=== PATIENT | male | born 1965 | race American Indian/Alaskan Native ===

== ENCOUNTER 2021-01-18 12:26 | Inpatient (IN) | payer MEDICAID ==
[2021-01-18] MEDS ORDERED: ACETAMINOPHEN 325 MG TAB PO STA (13:45)
--- NOTE | 2021-01-18 13:52 | Emergency Department Report ---
ED General Adult HPI - General Chief complaint: Medical Clearance Stated complaint: I cant breathe and im full of fluid PUI?: Yes Time Seen by Provider: 01/18/21 13:26 Source: patient, EMS ( EMS documentation not available at time of chart dictation ), RN notes reviewed, old records reviewed Mode of arrival: Stretcher Limitations: Physical Limitation - History of Present Illness Initial comments: The patient was evaluated in the emergency department for symptoms described in the history of present illness. He/she was evaluated in the context of the global COVID-19 pandemic, which necessitated consideration that the patient might be at risk for infection with the virus that causes COVID-19. Institutional protocols and algorithms that pertain to the evaluation of patients at risk for COVID-19 are in a state of rapid change based on information released by regulatory bodies including the CDC and federal and state organizations. These policies and algorithms were followed during the patient's care in the emergency department. Please note that these policies, procedures and recommendations changed on a rapid basis. During the entire history and physical examination, I had on complete personal protective equipment. Nephrology: Dr. Lori Lynch Past medical history: Obesity, COVID-19, diabetes, hypertension, obesity hypoventilation syndrome Patient was recently admitted to this hospital for hypoxic respiratory failure secondary to COVID-19, and worsening renal insufficiency. Ultimately, at the time of discharge, it was felt that patient did not require supplemental oxygen. The patient presents to the ER today with a complaint of feeling like he is "full of fluid", abdominal swelling, shortness of breath. He denies headache, neck pain, chest pain. He denies loss of taste and smell. He denies focal extremity weakness/numbness. He reports that after his recent discharge, that he did not "have any dialysis set up as an outpatient." He thus presented to the emergency room. This patient was recently discharged from this hospital, on 15 January. He believes his last hemodialysis session was on the or 16 of the month. Typically his symptoms improve with hemodialysis. He states that from a Covid perspective he does not feel symptomatic, and "I did not even know I had Covid until I told me." He has not had a subsequent negative test since his initial positive test here at this hospital. He started feeling "badly" last night. -: Gradual, days(s) Location: abdomen Radiation: non-radiation Consistency: constant Improves with: other (Hemodialysis) Worsens with: none - Related Data Previous Rx's Medication Instructions Recorded Last Taken Type Docusate Sodium [Colace CAP] 100 mg PO BID PRN #1 capsule 05/11/15 Unknown Rx ALBUTEROL NEB's [Proventil 0.083% 2.5 mg IH Q4HRT PRN #1 nebu 01/15/21 Unknown Rx NEBS] ALPRAZolam [Xanax TAB] 0.25 mg PO Q8H PRN #16 tablet 01/15/21 Unknown Rx Cholecalciferol Vit D3 [Vitamin D3 1,000 unit PO QDAY #30 tablet 01/15/21 Unknown Rx 1,000 UNIT TAB] Epoetin Domenic-Epbx 20,000 [Retacrit] 20,000 unit SUB-Q LUCÍA PRN vial 01/15/21 U nknown Rx Famotidine [Pepcid] 10 mg PO BID #60 tablet 01/15/21 Unknown Rx Furosemide [Lasix TAB] 80 mg PO QDAY@0600 #30 tablet 01/15/21 Unknown Rx HYDROcodone/APAP 5-325 [[place] 1 each PO Q6H PRN #14 tablet 01/15/21 Unknown Rx 5-325 mg TAB] Insulin Aspart Prot/Aspart(Nf) 20 units SUB-Q BIDDIAB 30 Days #2 01/15/21 Unknown Rx [NovoLOG Mix 70/30 VIAL] vial Insulin NPH/Regular [NovoLIN 70/30] 40 unit SUB-Q BIDDIAB #3 vial 01/15/21 Unknown Rx Tamsulosin [Flomax] 0.4 mg PO QDAY #30 capsule 01/15/21 Unknown Rx amLODIPine 10 mg PO QDAY #30 tablet 01/15/21 Unknown Rx hydrALAZINE [Apresoline TAB] 75 mg PO Q8HR #90 tablet 01/15/21 Unknown Rx Allergies Allergy/AdvReac Type Severity Reaction Status Date / Time No Known Allergies Allergy Verified 01/04/21 14:55 ED Review of Systems ROS: Stated complaint: ABD PAIN Other details as noted in HPI Constitutional: denies: fever Eyes: denies: vision change ENT: congestion Respiratory: shortness of breath, SOB with exertion, SOB at rest Cardiovascular: edema Gastrointestinal: abdominal pain. 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 - Social History Smoking Status: Unknown if ever smoked - Medications Home Medications: Home Medications Medication Instructions Recorded Confirmed Last Taken Type Docusate Sodium [Colace CAP] 100 mg PO BID PRN #1 capsule 05/11/15 01/04/21 Unknown Rx ALBUTEROL NEB's [Proventil 0.083% 2.5 mg IH Q4HRT PRN #1 nebu 01/15/21 Unknown Rx NEBS] ALPRAZolam [Xanax TAB] 0.25 mg PO Q8H PRN #16 tablet 01/15/21 Unknown Rx Cholecalciferol Vit D3 [Vitamin D3 1,000 unit PO QDAY #30 tablet 01/15/21 Unknown Rx 1,000 UNIT TAB] Epoetin Domenic-Epbx 20,000 [Retacrit] 20,000 unit SUB-Q LUCÍA PRN vial 01/15/21 Unknown Rx Famotidine [Pepcid] 10 mg PO BID #60 tablet 01/15/21 Unknown Rx Furosemide [Lasix TAB] 80 mg PO QDAY@0600 #30 tablet 01/15/21 Unknown Rx HYDROcodone/APAP 5-325 [[place] 1 each PO Q6H PRN #14 tablet 01/15/21 Unknown Rx 5-325 mg TAB] Insulin Aspart Prot/Aspart(Nf) 20 units SUB-Q BIDDIAB 30 Days #2 01/15/21 Unknown Rx [NovoLOG Mix 70/30 VIAL] vial Insulin NPH/Regular [NovoLIN 70/30] 40 unit SUB-Q BIDDIAB #3 vial 01/15/21 Unknown Rx Tamsulosin [Flomax] 0.4 mg PO QDAY #30 capsule 01/15/21 Unknown Rx amLODIPine 10 mg PO QDAY #30 tablet 01/15/21 Unknown Rx hydrALAZINE [Apresoline TAB] 75 mg PO Q8HR #90 tablet 01/15/21 Unknown Rx ED Physical Exam - General Limitations: Physical Limitation General appearance: alert, anxious, obese - Head Head exam: Present: atraumatic, normocephalic - Eye Eye exam: Present: normal appearance, EOMI. Absent: nystagmus - ENT ENT exam: Present: normal exam, normal orophraynx, mucous membranes moist, normal external ear exam - Neck Neck exam: Present: normal inspection, full ROM. Absent: tenderness, meningismus - Respiratory Respiratory exam: Present: respiratory distress (There is a right-sided hemodialysis access catheter noted, without redness, pus or streaking), accessory muscle use, other (Pulmonary auscultation not performed secondary to lack of disposable stethoscope). Absent: stridor - Cardiovascular Cardiovascular Exam: Present: other (Cardiac auscultation not performed secondary to lack of disposable stethoscope) - GI/Abdominal GI/Abdominal exam: Present: soft, other (Abdominal wall edema appreciated). Absent: tenderness, guarding, rebound, rigid, pulsatile mass - Rectal Rectal exam: Present: deferred - Extremities Exam Extremities exam: Present: normal inspection (Status post left lower extremity above-knee amputation), full ROM, other (2+ pulses noted in the bilateral upper and right lower extremity. 1+ edema noted in the right lower extremity) - Back Exam Back exam: Present: normal inspection. Absent: tenderness, CVA tenderness (R), CVA tenderness (L), paraspinal tenderness, vertebral tenderness - Neurological Exam Neurological exam: Present: alert, other (No facial droop. Tongue midline. Extraocular movements intact bilaterally. Facial sensation intact to light touch in V1, V2, V3 distribution bilaterally. 5 and a 5 strength in 4 extremities. Sensation intact to light touch in 4 extremities.) - Psychiatric Psychiatric exam: Present: anxious - Skin Skin exam: Present: warm, dry, intact, normal color. Absent: rash ED Course Vital Signs 01/18/21 01/18/21 01/18/21 12:48 13:00 13:01 Temperature 98.2 F Pulse Rate 99 H 91 H Respiratory 12 18 Rate Blood Pressure 163/77 O2 Sat by Pulse Oximetry 01/18/21 01/18/21 13:03 13:59 Temperature Pulse Rate Respiratory 18 Rate Blood Pressure O2 Sat by Pulse 100 Oximetry - Reevaluation(s) Reevaluation #1: 01/18/21 13:54 Differential diagnosis, including but not limited to: Fluid overload, volume overload, end-stage renal disease on hemodialysis, hyperkalemia, azotemia, uremia, metabolic acidosis, anemia of chronic disease Assessment and plan: 55-year-old gentleman, recently discharged from this hospital after prolonged hospital stay with multiple issues, now presenting with shortness of breath, subjective abdominal swelling, difficulty breathing, r equesting hemodialysis. Patient has not had a negative Covid test since his initial positive Covid test at this facility. Maintain patient on isolation precautions, obtain EKG, x-ray of the chest, appropriate laboratory studies, and discussed with his jukebox operator. Reassess after initial data points. We anticipate that patient may require admission or hospitalization secondary to needing urgent hemodialysis. Patient has provided consent for his medical care to be discussed with family if ne cessary. 01/18/21 14:41 Laboratory studies demonstrate chronic anemia, leukocytosis, which is likely a stress reaction, azotemia, uremia, metabolic acidosis. Have contacted patient's jukebox operator, Dr. Lori Lynch, And have discussed the patient's history, physical, laboratory studies and imaging findings. He is in agreement with admission for urgent hemodialysis, to correct fluid overload, me tabolic acidosis, azotemia and uremia. Hospital physician is paged to arrange admission Case management documentation from today is reviewed and appreciated, it appears that patient had a dialysis chair time set up for this past Monday, and they have documented that he did not show up. Therefore, noncompliance may be a component in patient's presentation. I will defer to inpatient team to further manage and evaluate this. I will defer to the inpatient team to further manage and evaluate this. 01/18/21 15:25 Hospital physician, Dr. Gibbons, to admit patient to the medical service. Patient's presentation is likely secondary to fluid overload, end-stage renal disease, do not suspect bacterial illness at this time, therefore, will not initiate antibiotic therapy. Patient currently saturating at 97% on room air, do not see indication for steroids. ED Medical Decision Making - Lab Data Result diagrams: 01/18/21 13:50 01/18/21 13:50 Vital Signs 01/18/21 01/18/21 01/18/21 12:48 13:00 13:01 Temperature 98.2 F Pulse Rate 99 H 91 H Respiratory 12 18 Rate Blood Pressure 163/77 01/18/21 13:03 Temperature Pulse Rate Respiratory 18 Rate Blood Pressure Lab Results 01/18/21 01/18/21 01/18/21 Range/Units 13:50 13:50 13:50 WBC 16.0 H (4.5-11.0) K/mm3 RBC 2.47 L (3.65-5.03) M/mm3 Hgb 7.8 L (11.8-15.2) gm/dl Hct 22.7 L (35.5-45.6) % MCV 92 (84-94) fl MCH 32 (28-32) pg MCHC 35 H (32-34) % RDW 13.3 (13.2-15.2) % Plt Count 199 (140-440) K/mm3 Lymph % (Auto) 4.3 L (13.4-35.0) % [place] % (Auto) 10.4 H (0.0-7.3) % Eos % (Auto) 0.2 (0.0-4.3) % Baso % (Auto) 0.4 (0.0-1.8) % Lymph # (Auto) 0.7 L (1.2-5.4) K/mm3 [place] # (Auto) 1.7 H (0.0-0.8) K/mm3 Eos # (Auto) 0.0 (0.0-0.4) K/mm3 Baso # (Auto) 0.1 (0.0-0.1) K/mm3 Seg Neutrophils % 84.7 H (40.0-70.0) % Seg Neutrophils # 13.6 H (1.8-7.7) K/mm3 PT 14.1 (12.2-14.9) Sec. INR 1.10 (0.87-1.13) Sodium 135 L (137-145) mmol/L Potassium 4.8 (3.6-5.0) mmol/L Chloride 92.5 L (98-107) mmol/L Carbon Dioxide 16 L (22-30) mmol/L Anion Gap 31 mmol/L BUN 97 H (9-20) mg/dL Creatinine 12.7 H (0.8-1.3) mg/dL Estimated GFR 5 ml/min BUN/Creatinine Ratio 8 % Glucose 112 H (75-100) mg/dL Calcium 7.2 L (8.4-10.2) mg/dL Magnesium 1.90 (1.7-2.3) mg/dL Total Bilirubin 0.20 (0.1-1.2) mg/dL AST 13 (5-40) units/L ALT 33 (7-56) units/L Alkaline Phosphatase 90 (35-129) units/L Total Creatine Kinase 534 H (55-170) units/L NT-Pro-B Natriuret Pep 4684 H (0-900) pg/mL Total Protein 6.4 (6.3-8.2) g/dL Albumin 2.7 L (3.9-5) g/dL Albumin/Globulin Ratio 0.7 % Vital Signs 01/18/21 01/18/21 01/18/21 12:48 13:00 13:01 Temperature 98.2 F Pulse Rate 99 H 91 H Respiratory 12 18 Rate Blood Pressure 163/77 O2 Sat by Pulse Oximetry 01/18/21 01/18/21 13:03 13:59 Temperature Pulse Rate Respiratory 18 Rate Blood Pressure O2 Sat by Pulse 100 Oximetry - EKG Data -: EKG Interpreted by [place] EKG shows normal: sinus rhythm Rate: normal - EKG Data 01/18/21 13:54 EKG interpreted at 1: 10 PM Sinus rhythm, 93 bpm, left axis deviation, left anterior fascicular block, left ventricular hypertrophy, QTC is prolonged, and motion artifact. This is an abnormal EKG. This is not a STEMI. - Radiology Data Radiology results: pending, report reviewed, image reviewed [facility] [address] [place] [address] XRay Report Signed Patient: MERLY BO MR#: [id number] 61 : 1965 Acct:[id number] Age/Sex: 55 / M ADM Date: 01/18/21 Loc: ED Attending Dr: Ordering Physician: DIPAK HANSEN MD Date of Service: 01/18/21 Procedure(s): XR chest 1V ap Accession Number(s): [id number] cc: DIPAK HANSEN MD Fluoro Time In Minutes: XR chest 1V ap INDICATION / CLINICAL INFORMATION: Dyspnea COMPARISON: 01/03/2021 FINDINGS: SUPPORT DEVICES: Right central venous catheter terminates in the right atrium. HEART / MEDIASTINUM: No significant abnormality. LUNGS / PLEURA: Pulmonary vascular congestion, similar to prior. Costophrenic sulci are sharp. No pneumothorax. ADDITIONAL FINDINGS: No significant additional findings. IMPRESSION: 1. Pulmonary vascular congestion which is similar prior exam. Otherwise, no significant abnormality. Signer Name: Henok Moseley MD Signed: 01/18/2021 2:24 PM Workstation Name: [email or web address] Transcribed By: CS Dictated By: Henok Moseley MD Electronically Authenticated By: Henok Moseley MD Signed Date/Time: 01/18/21 8888 Critical care attestation.: If time is entered above; I have spent that time in minutes in the direct care of this critically ill patient, excluding procedure time. ED Disposition Clinical Impression: ESRD (end stage renal disease) on dialysis, Metabolic acidosis, Volume over load, Azotemia, Anemia, Obesity, COVID-19, Obesity hypoventilation syndrome Disposition: DC-09 OP ADMIT IP TO THIS HOSP Is pt being admited?: Yes Does the pt Need Aspirin: No Condition: Good Referrals: PRIMARY CARE, [Primary Care Provider] - 3-5 Days
[2021-01-18 14:09] LABS: Basophils # (Auto) 0.1 K/mm3 (0.0-0.1); Basophils % (Auto) 0.4 % (0.0-1.8); Eosinophils % (Auto) 0.2 % (0.0-4.3); Hematocrit 22.7 % (35.5-45.6); Hemoglobin 7.8 gm/dl (11.8-15.2); Lymphocytes # (Auto) 0.7 K/mm3 (1.2-5.4); Lymphocytes % (Auto) 4.3 % (13.4-35.0); Mean Corpuscular HGB Conc 35 % (32-34); Mean Corpuscular Volume 92 fl (84-94); Monocytes # (Auto) 1.7 K/mm3 (0.0-0.8); Monocytes % (Auto) 10.4 % (0.0-7.3); Platelet Count 199 K/mm3 (140-440); Red Blood Count 2.47 M/mm3 (3.65-5.03); Red Cell Distribution Width 13.3 % (13.2-15.2)
[2021-01-18 14:23] LABS: INR 1.1 (0.87-1.13)
[2021-01-18 14:27] LABS: Albumin 2.7 g/dL (3.9-5); Calcium 7.2 mg/dL (8.4-10.2)
--- NOTE | 2021-01-18 14:29 | XRay Report ---
XR chest 1V ap INDICATION / CLINICAL INFORMATION: Dyspnea COMPARISON: 01/03/2021 FINDINGS: SUPPORT DEVICES: Right central venous catheter terminates in the right atrium. HEART / MEDIASTINUM: No significant abnormality. LUNGS / PLEURA: Pulmonary vascular congestion, similar to prior. Costophrenic sulci are sharp. No pne umothorax. ADDITIONAL FINDINGS: No significant additional findings. IMPRESSION: 1. Pulmonary vascular congestion which is similar prior exam. Otherwise, no significant abnormality. Signer Name: Henok Moseley MD Signed: 01/18/2021 2:24 PM Workstation Name: [id number]
--- NOTE | 2021-01-18 15:26 | History and Physical Report ---
History of Present Illness Chief complaint: I have fluid on me History of present illness: 55 YO Male with DM, HTN, Obesity Hypoventilation Syndrome, ESRD on HD(M,W,F), Noncompliance with dialysis, Asymptomatic Coronavirus Infection S/P full coarse therapy presents to ED for evaluation. Patient reports " I am full of fluid." Patient states that he has experienced shortness of breath, abdominal distention, decreased exercise tolerance over the past 4 days with worsening symptoms over the same timeframe. Patient knowledges noncompliance with outpatient dialysis. EMS was notified and upon arrival the patient was found to be in distress and subsequently transported to [facility] for further care and evaluation of the aforementioned symptoms. The patient was seen and evaluated in the emergency department. All lab and imaging studies reviewed. The patient was found to have end-stage renal disease, acidosis, sepsis. Patient admitted to medical floor and initiated on sepsis protocol. Patient is status post full course therapy for coronavirus infection with subsequent discharge from [facility] on 01/15/2021. Patient denies fever, chills, chest pain, palpitations, productive cough, skin rash, recent ill contacts. Prior admission on 01/03/2021 reviewed. All medication listed at time of admission has been reconciled. Nephrology team consulted in ED. Patient initiated on sepsis protocol and treated with empiric IV antibiotic therapy. Past History Past Medical History: diabetes, ESRD, hypertension Past Surgical History: No surgical history, Other (Buttock abscess excision) Social history: . denies: smoking, alcohol abuse, prescription drug abuse Family history: diabetes, hypertension Medications and Allergies Allergies Allergy/AdvReac Type Severity Reaction Status Date / Time No Known Allergies Allergy Verified 01/04/21 14:55 Home Medications Medication Instructions Recorded Confirmed Last Taken Type Docusate Sodium [Colace CAP] 100 mg PO BID PRN #1 capsule 05/11/15 01/04/21 Unknown Rx ALBUTEROL NEB's [Proventil 0.083% 2.5 mg IH Q4HRT PRN #1 nebu 01/15/21 Unknown Rx NEBS] ALPRAZolam [Xanax TAB] 0.25 mg PO Q8H PRN #16 tablet 01/15/21 Unknown Rx Cholecalciferol Vit D3 [Vitamin D3 1,000 unit PO QDAY #30 tablet 01/15/21 Unknown Rx 1,000 UNIT TAB] Epoetin Domenic-Epbx 20,000 [Retacrit] 20,000 unit SUB-Q LUCÍA PRN vial 01/15/21 Unknown Rx Famotidine [Pepcid] 10 mg PO BID #60 tablet 01/15/21 Unknown Rx Furosemide [Lasix TAB] 80 mg PO QDAY@0600 #30 tablet 01/15/21 Unknown Rx HYDROcodone/APAP 5-325 [[place] 1 each PO Q6H PRN #14 tablet 01/15/21 Unknown Rx 5-325 mg TAB] Insulin Aspart Prot/Aspart(Nf) 20 units SUB-Q BIDDIAB 30 Days #2 01/15/21 Unknown Rx [NovoLOG Mix 70/30 VIAL] vial Insulin NPH/Regular [NovoLIN 70/30] 40 unit SUB-Q BIDDIAB #3 vial 01/15/21 Unknown Rx Tamsulosin [Flomax] 0.4 mg PO QDAY #30 capsule 01/15/21 Unknown Rx amLODIPine 10 mg PO QDAY #30 tablet 01/15/21 Unknown Rx hydrALAZINE [Apresoline TAB] 75 mg PO Q8HR #90 tablet 01/15/21 Unknown Rx Review of Systems Constitutional: weakness, no weight loss, no weight gain, no fever, no chills Ears, nose, mouth and throat: no ear pain, no ear discharge, no decreased heari ng, no nasal congestion, no nasal discharge Cardiovascular: no chest pain, no orthopnea, no rapid/irregular heart beat, no edema, no syncope, no shortness of breath Respiratory: no cough, no cough with sputum, no hemoptysis, no shortness of breath Gastrointestinal: no abdominal pain, no nausea, no vomiting, no change in bowel habits, no hematemesis Genitourinary Male: no hematuria, no flank pain, no discharge, no urinary frequency, no urinary hesitancy Rectal: no pain, no incontinence, no bleeding Musculoskeletal: no neck stiffness, no neck pain, no shooting arm pain, no low back pain, no leg numbness/tingling Integumentary: no rash, no pruritis, no redness, no sores, no wounds Neurological: no transient paralysis, no paralysis, no weakness, no parathesias, no tingling, no seizures Psychiatric: no anxiety, no change in sleep habits, no sleep disturbances, no insomnia, no change in appetite, no change in libido, no suicidal ideation Endocrine: no cold intolerance, no polyphagia, no excessive thirst, no nocturia, no excessive sweating Hematologic/Lymphatic: no easy bruising, no lymphadenopathy, no lymphedema Allergic/Immunologic: no urticaria, no wheezing, no persistent infections, no anaphylaxis Exam - Constitutional Vitals: Temp Pulse Resp BP Pulse Ox 98.2 F 91 H 18 163/77 100 01/18/21 13:01 01/18/21 13:00 01/18/21 13:03 01/18/21 13:00 01/18/21 13:59 General appearance: Present: mild distress, obese - EENT Eyes: Present: PERRL ENT: hearing intact, clear oral mucosa - Neck Neck: Present: supple, normal ROM - Respiratory Respiratory effort: normal Respiratory: bilateral: CTA - Cardiovascular Heart Sounds: Present: S1 & S2. Absent: rub, click - Extremities Extremities: pulses symmetrical, No edema Peripheral Pulses: within normal limits - Abdominal General gastrointestinal: Present: soft, non-tender, non-distended, normal bowel sounds Male genitourinary: Present: normal - Integumentary Integumentary: Present: clear, warm, dry - Musculoskeletal Musculoskeletal: gait normal, strength equal bilaterally - Psychiatric Psychiatric: appropriate mood/affect, intact judgment & insight - Neurologic Neurologic: CNII-XII intact, moves all extremities Results - Labs CBC & Chem 7: 01/18/21 13:50 01/18/21 13:50 Labs: Abnormal lab results 01/18/21 01/18/21 Range/Units 13:50 13:50 WBC 16.0 H (4.5-11.0) K/mm3 RBC 2.47 L (3.65-5.03) M/mm3 Hgb 7.8 L (11.8-15.2) gm/dl Hct 22.7 L (35.5-45.6) % MCHC 35 H (32-34) % Lymph % (Auto) 4.3 L (13.4-35.0) % [place] % (Auto) 10.4 H (0.0-7.3) % Lymph # (Auto) 0.7 L (1.2-5.4) K/mm3 [place] # (Auto) 1.7 H (0.0-0.8) K/mm3 Seg Neutrophils % 84.7 H (40.0-70.0) % Seg Neutrophils # 13.6 H (1.8-7.7) K/mm3 Sodium 135 L (137-145) mmol/L Chloride 92.5 L (98-107) mmol/L Carbon Dioxide 16 L (22-30) mmol/L BUN 97 H (9-20) mg/dL Creatinine 12.7 H (0.8-1.3) mg/dL Glucose 112 H (75-100) mg/dL Calcium 7.2 L (8.4-10.2) mg/dL Total Creatine Kinase 534 H (55-170) units/L NT-Pro-B Natriuret Pep 4684 H (0-900) pg/mL Albumin 2.7 L (3.9-5) g/dL Assessment and Plan - Patient Problems (1) ESRD (end stage renal disease) on dialysis Current Visit: Yes Status: Acute Plan to address problem: Nephrology team consulted in ED, dialysis as per renal team, strict I's/O, monitor urine output every shift, avoid nephrotoxic agents. (2) Metabolic acidosis Current Visit: Yes Status: Acute Plan to address problem: BMP, repeat BMP in a.m., supportive care, urgent dialysis. (3) Obesity hypoventilation syndrome Current Visit: Yes Status: Acute Plan to address problem: Balanced diet, increase physical activity discharge, outpatient pulmonary follow-up for sleep study. (4) Coronavirus infection Current Visit: No Status: Resolved Plan to address problem: Patient asymptomatic at this time. Continue medical management. Contact precautions, isolation precautions. (5) DVT prophylaxis Current Visit: No Status: Acute Plan to address problem: SCDs bilateral lower extremities while in bed, prophylactic anticoagulation
[2021-01-18] MEDS ORDERED: ALBUTEROL 2.5 MG/3 ML NEBU IH PRN (15:29)
[2021-01-18] MEDS ORDERED: ACETAMINOPHEN 325 MG TAB PO PRN ×2 (15:29→15:31)
[2021-01-18 15:57] LABS: Chol/HDL Ratio 3.44 %
[2021-01-18] MEDS ORDERED: VANCOMYCIN PHARMACY TO DOSE IV SCH (16:00)
[2021-01-18] MEDS ORDERED: SODIUM CHLORIDE 0.9% 100 ML IV PRN (16:17)
[2021-01-18] MEDS ORDERED: HEPARIN 10,000 UNITS/10 ML VIAL IV PRN (16:17)
[2021-01-18] MEDS ORDERED: VANCOMYCIN 2,000 MG in SODIUM CHLORIDE 0.9% 500 ML 500 ML IV ONE ×2 (16:31→23:55)
[2021-01-18] MEDS: EPOETIN ALFA-EPBX 20,000 UNIT/1 ML VIAL SUB-Q PRN (19:59)
[2021-01-18] MEDS: HYDROmorphone 1 MG/1 ML INJ IV PRN ×2 (20:00→23:44)
[2021-01-18] MEDS: ONDANSETRON 4 MG/2 ML INJ IV PRN (20:52)
[2021-01-19] MEDS ORDERED: ALPRAZolam 0.25 MG TAB PO ONE (03:40)
[2021-01-19] MEDS: HYDROmorphone 1 MG/1 ML INJ IV PRN ×5 (03:52→21:34)
[2021-01-19 05:44] LABS: Basophils # (Auto) 0.1 K/mm3 (0.0-0.1); Basophils % (Auto) 0.6 % (0.0-1.8); Eosinophils % (Auto) 0.3 % (0.0-4.3); Hematocrit 21.4 % (35.5-45.6); Hemoglobin 7.5 gm/dl (11.8-15.2); Lymphocytes # (Auto) 0.6 K/mm3 (1.2-5.4); Mean Corpuscular HGB Conc 35 % (32-34); Mean Corpuscular Volume 91 fl (84-94); Monocytes # (Auto) 1.3 K/mm3 (0.0-0.8); Monocytes % (Auto) 13.3 % (0.0-7.3); Platelet Count 180 K/mm3 (140-440); Red Blood Count 2.34 M/mm3 (3.65-5.03)
[2021-01-19 06:07] LABS: Albumin 2.9 g/dL (3.9-5); Calcium 7.6 mg/dL (8.4-10.2)
--- NOTE | 2021-01-19 07:57 | Consultation ---
History of Present Illness - Reason for Consult Consult date: 01/19/21 end stage renal disease - History of Present Illness The patient is a 55 YO male with history significant for DM type 2, HTN, Obesity, Anemia, ESRD on hemodialysis (TTS), recent Covid infection and Medical non-compliance who presented to [facility] 01/18 with c/o body swelling and sob. Patient was discharged on 01/15 from this facility and he suppose to report to the outpatient hemodialysis clinic but he didn't. His last dialysis was on 01/14. Patient also reports orthopnea, abdominal distention and decreased exercise tolerance. Patient denies fever, chills, chest pain, palpitations, productive cough, skin rash, recent ill contacts, weakness or syncope. The patient was seen and evaluated in the ED and was found to have volume overload. Patient was admitted to medical floor. Labs significant for Creat 12.7, BUN 97, bicarb 16. Nephrology was consulted for further evaluation of ESRD with volume overload. Past History Past Medical History: diabetes, ESRD, hypertension Past Surgical History: No surgical history, Other (Buttock abscess excision) Social history: . denies: smoking, alcohol abuse, prescription drug ab use Family history: diabetes, hypertension Medications and Allergies Allergies Allergy/AdvReac Type Severity Reaction Status Date / Time No Known Allergies Allergy Verified 01/04/21 14:55 Home Medications Medication Instructions Recorded Confirmed Last Taken Type Docusate Sodium [Colace CAP] 100 mg PO BID PRN #1 capsule 05/11/15 01/19/21 01/18/21 Rx ALBUTEROL NEB's [Proventil 0.083% 2.5 mg IH Q4HRT PRN #1 nebu 01/15/21 01/19/21 01/18/21 Rx NEBS] ALPRAZolam [Xanax TAB] 0.25 mg PO Q8H PRN #16 tablet 01/15/21 01/19/21 01/18/21 Rx Cholecalciferol Vit D3 [Vitamin D3 1,000 unit PO QDAY #30 tablet 01/15/21 01/19/21 01/18/21 Rx 1,000 UNIT TAB] Epoetin Domenic-Epbx 20,000 [Retacrit] 20,000 unit SUB-Q LUCÍA PRN vial 01/15/21 01/19/21 01/18/21 Rx Famotidine [Pepcid] 10 mg PO BID #60 tablet 01/15/21 01/19/21 01/18/21 Rx Furosemide [Lasix TAB] 80 mg PO QDAY@0600 #30 tablet 01/15/21 01/19/21 01/18/21 Rx HYDROcodone/APAP 5-325 [[place] 1 each PO Q6H PRN #14 tablet 01/15/21 01/19/21 01/18/21 Rx 5-325 mg TAB] Insulin Aspart Prot/Aspart(Nf) 20 units SUB-Q BIDDIAB 30 Days #2 01/15/21 01/19/21 01/18/21 Rx [NovoLOG Mix 70/30 VIAL] vial Insulin NPH/Regular [NovoLIN 70/30] 40 unit SUB-Q BIDDIAB #3 vial 01/15/21 01/19/21 01/18/21 Rx Tamsulosin [Flomax] 0.4 mg PO QDAY #30 capsule 01/15/21 01/19/21 01/18/21 Rx amLODIPine 10 mg PO QDAY #30 tablet 01/15/21 01/19/21 01/18/21 Rx 10 hydrALAZINE [Apresoline TAB] 75 mg PO Q8HR #90 tablet 01/15/21 01/19/21 01/18/21 Rx Active Meds: Active Medications Acetaminophen (Acetaminophen 325 Mg Tab) 650 mg PO Q4H PRN PRN Reason: Pain MILD(1-3)/Fever >100.5/HAYNES Albuterol (Albuterol 2.5 Mg/3 Ml Nebu) 2.5 mg IH Q4HRT PRN PRN Reason: Shortness Of Breath Heparin Sodium (Porcine) (Heparin 10,000 Units/10 Ml Vial) 3,000 unit IV LUCÍA PRN PRN Reason: hemodialysis Last Admin: 01/18/21 17:30 Dose: 3,000 unit Documented by: Hydromorphone HCl (Hydromorphone 1 Mg/1 Ml Inj) 0.25 mg IV Q4H PRN PRN Reason: Pain, Moderate (4-6) Last Admin: 01/19/21 03:52 Dose: 0.25 mg Documented by: Sodium Chloride (Nacl 0.9%) 100 mls @ 999 mls/hr IV LUCÍA PRN PRN Reason: Hypotension Ondansetron HCl (Ondansetron 4 Mg/2 Ml Inj) 4 mg IV Q8H PRN PRN Reason: Nausea And Vomiting Last Admin: 01/18/21 20:52 Dose: 4 mg Documented by: Sodium Chloride (Sodium Chloride 0.9% 10 Ml Flush Syringe) 10 ml IV BID BAYRON Last Admin: 01/18/21 21:55 Dose: 10 ml Documented by: Sodium Chloride (Sodium Chloride 0.9% 10 Ml Flush Syringe) 10 ml IV PRN PRN PRN Reason: LINE FLUSH Review of Systems Constitutional: no weight loss, no weight gain, no fever, no chills, no weakness Cardiovascular: orthopnea, edema, shortness of breath, dyspnea on exertion, high blood pressure, leg edema, no chest pain, no syncope, no lightheadedness Gastrointestinal: no abdominal pain, no nausea, no vomiting, no diarrhea Genitourinary Male: no dysuria, no hematuria Rectal: no bleeding Musculoskeletal: no muscle weakness Integumentary: no rash Neurological: no paralysis, no aphasia, no change in speech, no change in mentation, no confusion, no memory loss Exam - Vital Signs Vital signs: Vital Signs Pulse Resp 99 H 12 01/18/21 12:48 01/18/21 12:48 Results - Lab Results 01/19/21 05:20 01/19/21 05:20 Most recent lab results Calcium 7.6 mg/dL (8.4-10.2) L 01/19/21 05:20 Magnesium 1.90 mg/dL (1.7-2.3) 01/18/21 13:50 Assessment and Plan 1. ESRD: Patient was started on hemodialysis during the prior admission. Admitted after missed dialysis on 01/16. Avoid nephrotoxic agents. Meds dosage based on GFR. Hemodialysis: 01/18. HD today. 2. FEN: Metabolic acidosis, s/p HD. Volume overload, UF with HD as tolerated, monitor. On Lasix. Limit fluid intake. Monitor lytes and volume status. 3. Recent Covid infection / PNA: On RA. Monitor. 4. DM type 2: Monitor bl. sugar. 5. Anemia: Monitor. Epogen with HD. 6. HTN: Adjust meds as appropriate. Monitor. Compliance encouraged. Outpatient hemodialysis chair at [facility], then transfer to [facility]. Subjective: Patient was seen and examined at the bedside. Objective: General appearance: well-developed, appears stated age, not in distress HEENT: ATNC, XIMENA Neck: trachea midline Respiratory: ctab Heart: regular, S1S2, no murmur Gastrointestinal: soft, normoactive bowel sounds, not tender Integumentary: no rash, warm and dry Ext: no edema Neurologic: AO, non-focal Ext: no edema, L BKA Hemodialysis access: R IJ tunnel catheter
[2021-01-19] MEDS: ONDANSETRON 4 MG/2 ML INJ IV PRN ×2 (09:46→21:32)
--- NOTE | 2021-01-19 10:12 | Progress Note ---
Assessment and Plan Assessment and plan: --Abdominal pain; Current Visit: Yes Status: Acute Plan to address problem: Pain medications, Protonix, Maalox if needed Check CT abdomen and pelvis without contrast GI consult if needed Supportive care -- ESRD (end stage renal disease) on dialysis Current Visit: Yes Status: Acute Plan to address problem: Nephrology team consulted in ED, dialysis as per renal team, strict I's/O, monitor urine output every shift, avoid nephrotoxic agents. HD per schedule -- Metabolic acidosis Current Visit: Yes Status: Acute Plan to address problem: BMP, repeat BMP in a.m., supportive care, urgent dialysis. -- Obesity hypoventilation syndrome Current Visit: Yes Status: Acute Plan to address problem: Balanced diet, increase physical activity discharge, outpatient pulmonary follow-up for sleep study. --Recent coronavirus infection [01/03/2021] Current Visit: No Status: Resolved Plan to address problem: Patient asymptomatic at this time. Continue medical management. Contact precautions, isolation precautions. Ochoa PCR test pending --Type 2 diabetes mellitus; A1c 7.1[01/06/2020] Current Visit: No Status: Resolved Plan to address problem: Accu-Chek, sliding scale coverage, ADA diet and long-acting insulin as needed --Obesity; BMI 34.3 Current Visit: No Status: Resolved Plan to address problem: Need outpatient weight reduction program -- DVT prophylaxis Current Visit: No Status: Acute . Plan to address problem: SCDs bilateral lower extremities while in bed, prophylactic anticoagulation Closely monitor patient and adjust the management as needed Consults and recommendations noted and appreciated History Interval history: I seen and examined the patient at the bedside Patient's chart and medications reviewed Isolation precautions PPE protocol strictly followed Patient complains of some abdominal pain and asked for more pain medications Denies nausea vomiting Vital signs reviewed Hospitalist Physical - Constitutional Vitals: Temp Pulse Resp BP Pulse Ox 98.0 F 100 H 20 156/62 98 01/19/21 06:54 01/19/21 06:54 01/19/21 06:54 01/19/21 06:54 01/19/21 06:54 General appearance: Present: mild distress, obese - EENT Eyes: Present: PERRL, EOM intact - Neck Neck: Present: supple, normal ROM - Respiratory Respiratory effort: normal Respiratory: bilateral: diminished, rales, negative: rhonchi, wheezing - Cardiovascular Rhythm: regular Heart Sounds: Present: S1 & S2 - Extremities Extremities: no ischemia, No edema - Abdominal General gastrointestinal: soft, tender (No guarding rigidity), non-distended, normal bowel sounds - Integumentary Integumentary: Present: clear, warm - Psychiatric Psychiatric: appropriate mood/affect, cooperative - Neurologic Neurologic: CNII-XII intact, moves all extremities HEART Score - HEART Score Troponin: Troponin T 0.171 ng/mL (0.00-0.029) H* 01/18/21 13:50 Results - Labs CBC & Chem 7: 01/19/21 05:20 01/19/21 05:20 Labs: Laboratory Last Values WBC 9.8 K/mm3 (4.5-11.0) 01/19/21 05:20 RBC 2.34 M/mm3 (3.65-5.03) L 01/19/21 05:20 Hgb 7.5 gm/dl (11.8-15.2) L 01/19/21 05:20 Hct 21.4 % (35.5-45.6) L 01/19/21 05:20 MCV 91 fl (84-94) 01/19/21 05:20 MCH 32 pg (28-32) 01/19/21 05:20 MCHC 35 % (32-34) H 01/19/21 05:20 RDW 13.0 % (13.2-15.2) L 01/19/21 05:20 Plt Count 180 K/mm3 (140-440) 01/19/21 05:20 Lymph % (Auto) 6.0 % (13.4-35.0) L 01/19/21 05:20 [place] % (Auto) 13.3 % (0.0-7.3) H 01/19/21 05:20 Eos % (Auto) 0.3 % (0.0-4.3) 01/19/21 05:20 Baso % (Auto) 0.6 % (0.0-1.8) 01/19/21 05:20 Lymph # (Auto) 0.6 K/mm3 (1.2-5.4) L 01/19/21 05:20 [place] # (Auto) 1.3 K/mm3 (0.0-0.8) H 01/19/21 05:20 Eos # (Auto) 0.0 K/mm3 (0.0-0.4) 01/19/21 05:20 Baso # (Auto) 0.1 K/mm3 (0.0-0.1) 01/19/21 05:20 Seg Neutrophils % 79.8 % (40.0-70.0) H 01/19/21 05:20 Seg Neutrophils # 7.8 K/mm3 (1.8-7.7) H 01/19/21 05:20 PT 14.1 Sec. (12.2-14.9) 01/18/21 13:50 INR 1.10 (0.87-1.13) 01/18/21 13:50 Sodium 136 mmol/L (137-145) L 01/19/21 05:20 Potassium 4.4 mmol/L (3.6-5.0) 01/19/21 05:20 Chloride 95.0 mmol/L (98-107) L 01/19/21 05:20 Carbon Dioxide 25 mmol/L (22-30) D 01/19/21 05:20 Anion Gap 20 mmol/L 01/19/21 05:20 BUN 54 mg/dL (9-20) H 01/19/21 05:20 Creatinine 8.2 mg/dL (0.8-1.3) H 01/19/21 05:20 Estimated GFR 8 ml/min 01/19/21 05:20 BUN/Creatinine Ratio 7 % 01/19/21 05:20 Glucose 90 mg/dL (75-100) 01/19/21 05:20 POC Glucose 176 mg/dL (70-105) H 01/18/21 21:23 Lactic Acid 1.50 mmol/L (0.7-2.0) 01/18/21 21:00 Calcium 7.6 mg/dL (8.4-10.2) L 01/19/21 05:20 Magnesium 1.90 mg/dL (1.7-2.3) 01/18/21 13:50 Total Bilirubin 0.20 mg/dL (0.1-1.2) 01/19/21 05:20 AST 14 units/L (5-40) 01/19/21 05:20 ALT 28 units/L (7-56) 01/19/21 05:20 Alkaline Phosphatase 91 units/L (35-129) 01/19/21 05:20 Total Creatine Kinase 534 units/L (55-170) H 01/18/21 13:50 Troponin T 0.171 ng/mL (0.00-0.029) H* 01/18/21 13:50 NT-Pro-B Natriuret Pep 4684 pg/mL (0-900) H 01/18/21 13:50 Total Protein 6.4 g/dL (6.3-8.2) 01/19/21 05:20 Albumin 2.9 g/dL (3.9-5) L 01/19/21 05:20 Albumin/Globulin Ratio 0.8 % 01/19/21 05:20 Triglycerides 231 mg/dL (2-149) H 01/18/21 13:50 Cholesterol 238 mg/dL (50-199) H 01/18/21 13:50 LDL Cholesterol Direct 149 mg/dL (50-130) H 01/18/21 13:50 HDL Cholesterol 69 mg/dL (40-59) H 01/18/21 13:50 Cholesterol/HDL Ratio 3.44 % 01/18/21 13:50 Microbiology: Microbiology 01/18/21 15:47 Peripheral/Venous Blood Culture - Preliminary Culture in Progress 01/18/21 15:47 Peripheral/Venous Blood Culture - Preliminary Culture in Progress Shabazz/IV: Voiding Method Urinal Active Medications - Current Medications Current Medications: Generic Name Dose Route Start Last Admin Trade Name Freq PRN Reason Stop Dose Admin Acetaminophen 650 mg 01/18/21 15:29 Acetaminophen 325 Mg Tab PO Q4H PRN Pain MILD(1-3)/Fever >100.5/HAYNES Albuterol 2.5 mg 01/18/21 15:29 Albuterol 2.5 Mg/3 Ml Nebu IH Q4HRT PRN Shortness Of Breath Heparin Sodium (Porcine) 3,000 unit 01/18/21 16:17 01/18/21 17:30 Heparin 10,000 Units/10 Ml Vial IV 3,000 unit LUCÍA PRN Administration hemodialysis Hydromorphone HCl 0.25 mg 01/18/21 15:31 01/19/21 09:49 Hydromorphone 1 Mg/1 Ml Inj IV 0.25 mg Q4H PRN Administration Pain, Moderate (4-6) Sodium Chloride 100 mls @ 999 mls/hr 01/18/21 16:17 Nacl 0.9% IV LUCÍA PRN Hypotension Ondansetron HCl 4 mg 01/18/21 15:29 01/19/21 09:46 Ondansetron 4 Mg/2 Ml Inj IV 4 mg Q8H PRN Administration Nausea And Vomiting Sodium Chloride 10 ml 01/18/21 22:00 01/18/21 21:55 Sodium Chloride 0.9% 10 Ml Flush Syringe IV 10 ml BID BAYRON Administration Sodium Chloride 10 ml 01/18/21 15:29 Sodium Chloride 0.9% 10 Ml Flush Syringe IV PRN PRN LINE FLUSH
[2021-01-19] MEDS ORDERED: DOCUSATE SODIUM 100 MG CAP PO PRN (10:16)
[2021-01-19] MEDS ORDERED: ALPRAZolam 0.25 MG TAB PO PRN (10:16)
[2021-01-19] MEDS: INSULIN LISPRO 100 UNIT/ML SUB-Q SCH ×3 (11:30→23:10)
[2021-01-19] MEDS: EPOETIN ALFA-EPBX 20,000 UNIT/1 ML VIAL SUB-Q PRN (13:00)
[2021-01-19] MEDS: FUROSEMIDE 40 MG TAB PO SCH (14:56)
[2021-01-19] MEDS: TAMSULOSIN 0.4 MG CAP PO SCH (14:56)
[2021-01-19] MEDS: amLODIPine 5 MG TAB PO SCH (14:56)
[2021-01-19] MEDS: hydrALAZINE 25 MG TAB PO SCH ×2 (14:56→22:09)
[2021-01-19] MEDS: FAMOTIDINE 10 MG TAB PO SCH (21:33)
[2021-01-20] MEDS: ONDANSETRON 4 MG/2 ML INJ IV PRN (02:21)
[2021-01-20] MEDS: HYDROmorphone 1 MG/1 ML INJ IV PRN (02:22)
[2021-01-20] MEDS: FUROSEMIDE 40 MG TAB PO SCH (05:10)
[2021-01-20] MEDS: hydrALAZINE 25 MG TAB PO SCH ×3 (05:10→22:46)
[2021-01-20] MEDS: FAMOTIDINE 10 MG TAB PO SCH ×2 (09:33→22:46)
[2021-01-20] MEDS: TAMSULOSIN 0.4 MG CAP PO SCH (09:33)
[2021-01-20] MEDS: INSULIN LISPRO 100 UNIT/ML SUB-Q SCH ×4 (09:33→22:46)
[2021-01-20] MEDS: CHOLECALCIFEROL (VIT D3) 1000 UNIT (25 mcg) TAB PO SCH (09:33)
[2021-01-20] MEDS: amLODIPine 5 MG TAB PO SCH (09:36)
--- NOTE | 2021-01-20 10:52 | Progress Note ---
Assessment and Plan Assessment and plan: --COVID-19 infection 01/19/2021 [01/03/2021] Current Visit: No Status: Resolved Plan to address problem: Patient is requiring 2 L of nasal cannula oxygen Will start dexamethasone 6 mg IV daily total 10 doses No indication for remdesivir due to ESRD We will consult ID Isolation precautions Follow inflammatory markers Home oxygen evaluation --Abdominal pain; Current Visit: Yes Status: Acute Plan to address problem: Pain medications, Protonix, Maalox if needed CT abdomen and pelvis ; no acute abnormality noted Symptoms completely resolved, tolerating regular diet -- ESRD (end stage renal disease) on dialysis Current Visit: Yes Status: Acute Plan to address problem: Nephrology team consulted in ED, dialysis as per renal team, strict I's/O, monitor urine output every shift, avoid nephrotoxic agents. Outpatient confirmed HD schedule was given to the patient by CM -- Metabolic acidosis Current Visit: Yes Status: Acute Plan to address problem: BMP, repeat BMP in a.m., supportive care, urgent dialysis. -- Obesity hypoventilation syndrome Current Visit: Yes Status: Acute Plan to address problem: Balanced diet, increase physical activity discharge, outpatient pulmonary follow-up for sleep study. --Type 2 diabetes mellitus; A1c 7.1[01/06/2020] Current Visit: No Status: Resolved Plan to address problem: Accu-Chek, sliding scale coverage, ADA diet and long-acting insulin as needed --Obesity; BMI 34.3 Current Visit: No Status: Resolved Plan to address problem: Need outpatient weight reduction program -- DVT prophylaxis Current Visit: No Status: Acute . Plan to address problem: SCDs bilateral lower extremities while in bed, prophylactic anticoagulation Closely monitor patient and adjust the management as needed Consults and recommendations noted and appreciated Check resting room air, ambulatory 5 minutes walk in the room room air O2 sats If normal and if patient is stable may be discharged home tomorrow Patient was given his confirmed schedule of outpatient hemodialysis by case management Plan of care reviewed with the patient and his nurse History Interval history: I have seen and examined the patient at the bedside this morning Patient's chart and medications reviewed Isolation precautions PPE protocol strictly followed per COVID-19 guidelines Patient feels better, Abdominal pain significantly improved CT abdomen and pelvis no acute findings Vital signs noted Hospitalist Physical - Constitutional Vitals: Temp Pulse Resp BP Pulse Ox 98.9 F 94 H 18 138/66 97 01/20/21 04:23 01/20/21 09:36 01/20/21 04:23 01/20/21 09:36 01/20/21 08:38 General appearance: Present: no acute distress, well-nourished, obese - EENT Eyes: Present: PERRL, EOM intact - Neck Neck: Present: supple, normal ROM - Respiratory Respiratory effort: normal Respiratory: bilateral: diminished, rhonchi, negative: rales, wheezing - Cardiovascular Rhythm: regular Heart Sounds: Present: S1 & S2 - Extremities Extremities: no ischemia, No edema - Abdominal General gastrointestinal: soft, non-tender, non-distended, normal bowel sounds - Integumentary Integumentary: Present: clear, warm - Psychiatric Psychiatric: appropriate mood/affect, cooperative - Neurologic Neurologic: CNII-XII intact, moves all extremities HEART Score - HEART Score Troponin: Troponin T 0.171 ng/mL (0.00-0.029) H* 01/18/21 13:50 Results - Labs CBC & Chem 7: 01/19/21 05:20 01/19/21 05:20 Labs: Laboratory Last Values WBC 9.8 K/mm3 (4.5-11.0) 01/19/21 05:20 RBC 2.34 M/mm3 (3.65-5.03) L 01/19/21 05:20 Hgb 7.5 gm/dl (11.8-15.2) L 01/19/21 05:20 Hct 21.4 % (35.5-45.6) L 01/19/21 05:20 MCV 91 fl (84-94) 01/19/21 05:20 MCH 32 pg (28-32) 01/19/21 05:20 MCHC 35 % (32-34) H 01/19/21 05:20 RDW 13.0 % (13.2-15.2) L 01/19/21 05:20 Plt Count 180 K/mm3 (140-440) 01/19/21 05:20 Lymph % (Auto) 6.0 % (13.4-35.0) L 01/19/21 05:20 [place] % (Auto) 13.3 % (0.0-7.3) H 01/19/21 05:20 Eos % (Auto) 0.3 % (0.0-4.3) 01/19/21 05:20 Baso % (Auto) 0.6 % (0.0-1.8) 01/19/21 05:20 Lymph # (Auto) 0.6 K/mm3 (1.2-5.4) L 01/19/21 05:20 [place] # (Auto) 1.3 K/mm3 (0.0-0.8) H 01/19/21 05:20 Eos # (Auto) 0.0 K/mm3 (0.0-0.4) 01/19/21 05:20 Baso # (Auto) 0.1 K/mm3 (0.0-0.1) 01/19/21 05:20 Seg Neutrophils % 79.8 % (40.0-70.0) H 01/19/21 05:20 Seg Neutrophils # 7.8 K/mm3 (1.8-7.7) H 01/19/21 05:20 PT 14.1 Sec. (12.2-14.9) 01/18/21 13:50 INR 1.10 (0.87-1.13) 01/18/21 13:50 Sodium 136 mmol/L (137-145) L 01/19/21 05:20 Potassium 4.4 mmol/L (3.6-5.0) 01/19/21 05:20 Chloride 95.0 mmol/L (98-107) L 01/19/21 05:20 Carbon Dioxide 25 mmol/L (22-30) D 01/19/21 05:20 Anion Gap 20 mmol/L 01/19/21 05:20 BUN 54 mg/dL (9-20) H 01/19/21 05:20 Creatinine 8.2 mg/dL (0.8-1.3) H 01/19/21 05:20 Estimated GFR 8 ml/min 01/19/21 05:20 BUN/Creatinine Ratio 7 % 01/19/21 05:20 Glucose 90 mg/dL (75-100) 01/19/21 05:20 POC Glucose 130 mg/dL (70-105) H 01/20/21 08:09 Lactic Acid 1.50 mmol/L (0.7-2.0) 01/18/21 21:00 Calcium 7.6 mg/dL (8.4-10.2) L 01/19/21 05:20 Magnesium 1.90 mg/dL (1.7-2.3) 01/18/21 13:50 Total Bilirubin 0.20 mg/dL (0.1-1.2) 01/19/21 05:20 AST 14 units/L (5-40) 01/19/21 05:20 ALT 28 units/L (7-56) 01/19/21 05:20 Alkaline Phosphatase 91 units/L (35-129) 01/19/21 05:20 Total Creatine Kinase 534 units/L (55-170) H 01/18/21 13:50 Troponin T 0.171 ng/mL (0.00-0.029) H* 01/18/21 13:50 NT-Pro-B Natriuret Pep 4684 pg/mL (0-900) H 01/18/21 13:50 Total Protein 6.4 g/dL (6.3-8.2) 01/19/21 05:20 Albumin 2.9 g/dL (3.9-5) L 01/19/21 05:20 Albumin/Globulin Ratio 0.8 % 01/19/21 05:20 Triglycerides 231 mg/dL (2-149) H 01/18/21 13:50 Cholesterol 238 mg/dL (50-199) H 01/18/21 13:50 LDL Cholesterol Direct 149 mg/dL (50-130) H 01/18/21 13:50 HDL Cholesterol 69 mg/dL (40-59) H 01/18/21 13:50 Cholesterol/HDL Ratio 3.44 % 01/18/21 13:50 Random Vancomycin 18.3 ug/mL (0-40.0) 01/20/21 06:45 Coronavirus (PCR) Positive (Negative) A 01/18/21 10:00 Microbiology: Microbiology 01/18/21 15:47 Peripheral/Venous Blood Culture - Preliminary NO GROWTH AFTER 24 HOURS 01/18/21 15:47 Peripheral/Venous Blood Culture - Preliminary NO GROWTH AFTER 24 HOURS Shabazz/IV: Voiding Method Urinal Active Medications - Current Medications Current Medications: Generic Name Dose Route Start Last Admin Trade Name Freq PRN Reason Stop Dose Admin Acetaminophen 650 mg 01/18/21 15:29 Acetaminophen 325 Mg Tab PO Q4H PRN Pain MILD(1-3)/Fever >100.5/HAYNES Albuterol 2.5 mg 01/18/21 15:29 Albuterol 2.5 Mg/3 Ml Nebu IH Q4HRT PRN Shortness Of Breath Alprazolam 0.25 mg 01/19/21 10:16 01/19/21 21:33 Alprazolam 0.25 Mg Tab PO 0.25 mg Q8H PRN Administration Anxiety Amlodipine Besylate 10 mg 01/19/21 10:30 01/20/21 09:36 Amlodipine 5 Mg Tab PO 10 mg QDAY BAYRON Administration Cholecalciferol 1,000 unit 01/20/21 10:00 01/20/21 09:33 Cholecalciferol (Vit D3) 1000 Unit (25 Mcg) Tab PO 1,000 unit QDAY BAYRON Administration Docusate Sodium 100 mg 01/19/21 10:16 Docusate Sodium 100 Mg Cap PO BID PRN Constipation Famotidine 10 mg 01/19/21 22:00 01/20/21 09:33 Famotidine 10 Mg Tab PO 10 mg BID BAYRON Administration Furosemide 80 mg 01/19/21 10:30 01/20/21 05:10 Furosemide 40 Mg Tab PO 80 mg QDAY@0600 BAYRON Administration Heparin Sodium (Porcine) 3,000 unit 01/18/21 16:17 01/18/21 17:30 Heparin 10,000 Units/10 Ml Vial IV 3,000 unit LUCÍA PRN Administration hemodialysis Hydralazine HCl 75 mg 01/19/21 14:00 01/20/21 05:10 Hydralazine 25 Mg Tab PO 75 mg Q8HR BAYRON Administration Hydromorphone HCl 0.25 mg 01/18/21 15:31 01/20/21 02:22 Hydromorphone 1 Mg/1 Ml Inj IV 0.25 mg Q4H PRN Administration Pain, Moderate (4-6) Sodium Chloride 100 mls @ 999 mls/hr 01/18/21 16:17 Nacl 0.9% IV LUCÍA PRN Hypotension Insulin Human Lispro 0 unit 01/19/21 11:30 01/20/21 09:33 Insulin Lispro 100 Unit/Ml SUB-Q Not Given ACHS [facility] Protocol Ondansetron HCl 4 mg 01/18/21 15:29 01/20/21 02:21 Ondansetron 4 Mg/2 Ml Inj IV 4 mg Q8H PRN Administration Nausea And Vomiting Sodium Chloride 10 ml 01/18/21 22:00 01/20/21 09:33 Sodium Chloride 0.9% 10 Ml Flush Syringe IV 10 ml BID BAYRON Administration Sodium Chloride 10 ml 01/18/21 15:29 Sodium Chloride 0.9% 10 Ml Flush Syringe IV PRN PRN LINE FLUSH Tamsulosin HCl 0.4 mg 01/19/21 10:30 01/20/21 09:33 Tamsulosin 0.4 Mg Cap PO 0.4 mg QDAY BAYRON Administration Nutrition/Malnutrition Assess - Dietary Evaluation Nutrition/Malnutrition Findings: Nutrition Notes Start: 01/19/21 11:31 Freq: Status: Active Protocol: Document 01/19/21 11:31 (Rec: 01/19/21 11:35 [id number]) Nutrition Notes Need for 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 Brayden score 18. Pt not in room at time of visit. Nutrition Intervention Follow-Up By: 01/20/21 Additional Comments FU for skin risk
--- NOTE | 2021-01-20 11:52 | Progress Note ---
Assessment and Plan 1. ESRD: Patient was started on hemodialysis during the prior admission. Admitted after missed dialysis on 01/16. Avoid nephrotoxic agents. Meds dosage based on GFR. Hemodialysis: 01/18, 01/19. 2. FEN: Metabolic acidosis, s/p HD. Volume overload, UF with HD as tolerated, monitor. On Lasix. Limit fluid intake. Monitor lytes and volume status. 3. Recent Covid infection / PNA: On RA. Monitor. 4. DM type 2: Monitor bl. sugar. 5. Anemia: Monitor. Epogen with HD. 6. HTN: Adjust meds as appropriate. Monitor. Compliance encouraged. Outpatient hemodialysis chair at [facility], then transfer to [facility]. Subjective: Patient was seen and examined at the bedside. Doing better. Objective: General appearance: well-developed, appears stated age, not in distress HEENT: ATNC, XIMENA Neck: trachea midline Respiratory: ctab Heart: regular, S1S2, no murmur Gastrointestinal: soft, normoactive bowel sounds, not tender Integumentary: no rash, warm and dry Ext: no edema Neurologic: AO, non-focal Ext: no edema, L BKA Hemodialysis access: R IJ tunnel catheter Subjective Date of service: 01/20/21 Objective - Vital Signs Vital signs: Vital Signs - 12hr 01/20/21 01/20/21 01/20/21 04:23 05:10 08:38 Temperature 98.9 F Pulse Rate 93 H 93 H Respiratory 18 Rate Respiratory Rate [Neck] Blood Pressure 121/88 121/88 O2 Sat by Pulse 97 97 Oximetry 01/20/21 01/20/21 09:36 10:00 Temperature Pulse Rate 94 H Respiratory Rate Respiratory 20 Rate [Neck] Blood Pressure 138/66 O2 Sat by Pulse Oximetry - Lab 01/19/21 05:20 01/19/21 05:20 Most recent lab results Calcium 7.6 mg/dL (8.4-10.2) L 01/19/21 05:20 Magnesium 1.90 mg/dL (1.7-2.3) 01/18/21 13:50 Medications & Allergies - Medications Allergies/Adverse Reactions: Allergies No Known Allergies Allergy (Verified 01/04/21 14:55) nka Home Medications: Home Medications Medication Instructions Recorded Confirmed Last Taken Type Docusate Sodium [Colace CAP] 100 mg PO BID PRN #1 capsule 05/11/15 01/19/21 01/18/21 Rx ALBUTEROL NEB's [Proventil 0.083% 2.5 mg IH Q4HRT PRN #1 nebu 01/15/21 01/19/21 01/18/21 Rx NEBS] ALPRAZolam [Xanax TAB] 0.25 mg PO Q8H PRN #16 tablet 01/15/21 01/19/21 01/18/21 Rx Cholecalciferol Vit D3 [Vitamin D3 1,000 unit PO QDAY #30 tablet 01/15/21 01/19/21 01/18/21 Rx 1,000 UNIT TAB] Epoetin Domenic-Epbx 20,000 [Retacrit] 20,000 unit SUB-Q LUCÍA PRN vial 01/15/21 01/19/21 01/18/21 Rx Famotidine [Pepcid] 10 mg PO BID #60 tablet 01/15/21 01/19/21 01/18/21 Rx Furosemide [Lasix TAB] 80 mg PO QDAY@0600 #30 tablet 01/15/21 01/19/21 01/18/21 Rx HYDROcodone/APAP 5-325 [[place] 1 each PO Q6H PRN #14 tablet 01/15/21 01/19/21 0 01/18/21 Rx 5-325 mg TAB] Insulin Aspart Prot/Aspart(Nf) 20 units SUB-Q BIDDIAB 30 Days #2 01/15/21 01/19/21 01/18/21 Rx [NovoLOG Mix 70/30 VIAL] vial Insulin NPH/Regular [NovoLIN 70/30] 40 unit SUB-Q BIDDIAB #3 vial 01/15/21 01/19/21 01/18/21 Rx Tamsulosin [Flomax] 0.4 mg PO QDAY #30 capsule 01/15/21 01/19/21 01/18/21 Rx amLODIPine 10 mg PO QDAY #30 tablet 01/15/21 01/19/21 01/18/21 Rx 10 hydrALAZINE [Apresoline TAB] 75 mg PO Q8HR #90 tablet 01/15/21 01/19/21 01/18/21 Rx Active Medications: Generic Name Dose Route Start Last Admin Trade Name Freq PRN Reason Stop Dose Admin Acetaminophen 650 mg 01/18/21 15:29 Acetaminophen 325 Mg Tab PO Q4H PRN Pain MILD(1-3)/Fever >100.5/HAYNES Albuterol 2.5 mg 01/18/21 15:29 Albuterol 2.5 Mg/3 Ml Nebu IH Q4HRT PRN Shortness Of Breath Alprazolam 0.25 mg 01/19/21 10:16 01/19/21 21:33 Alprazolam 0.25 Mg Tab PO 0.25 mg Q8H PRN Administration Anxiety Amlodipine Besylate 10 mg 01/19/21 10:30 01/20/21 09:36 Amlodipine 5 Mg Tab PO 10 mg QDAY BAYRON Administration Cholecalciferol 1,000 unit 01/20/21 10:00 01/20/21 09:33 Cholecalciferol (Vit D3) 1000 Unit (25 Mcg) Tab PO 1,000 unit QDAY BAYRON Administration Dexamethasone 6 mg 01/21/21 10:00 Dexamethasone 4 Mg/Ml Vial IV 01/30/21 10:01 DAILY BAYRON Docusate Sodium 100 mg 01/19/21 10:16 Docusate Sodium 100 Mg Cap PO BID PRN Constipation Famotidine 10 mg 01/19/21 22:00 01/20/21 09:33 Famotidine 10 Mg Tab PO 10 mg BID BAYRON Administration Furosemide 80 mg 01/19/21 10:30 01/20/21 05:10 Furosemide 40 Mg Tab PO 80 mg QDAY@0600 BAYRON Administration Heparin Sodium (Porcine) 3,000 unit 01/18/21 16:17 01/18/21 17:30 Heparin 10,000 Units/10 Ml Vial IV 3,000 unit LUCÍA PRN Administration hemodialysis Hydralazine HCl 75 mg 01/19/21 14:00 01/20/21 05:10 Hydralazine 25 Mg Tab PO 75 mg Q8HR BAYRON Administration Hydromorphone HCl 0.25 mg 01/18/21 15:31 01/20/21 02:22 Hydromorphone 1 Mg/1 Ml Inj IV 0.25 mg Q4H PRN Administration Pain, Moderate (4-6) Sodium Chloride 100 mls @ 999 mls/hr 01/18/21 16:17 Nacl 0.9% IV LUCÍA PRN Hypotension Insulin Human Lispro 0 unit 01/19/21 11:30 01/20/21 09:33 Insulin Lispro 100 Unit/Ml SUB-Q Not Given ACHS [facility] Protocol Ondansetron HCl 4 mg 01/18/21 15:29 01/20/21 02:21 Ondansetron 4 Mg/2 Ml Inj IV 4 mg Q8H PRN Administration Nausea And Vomiting Sodium Chloride 10 ml 01/18/21 22:00 01/20/21 09:33 Sodium Chloride 0.9% 10 Ml Flush Syringe IV 10 ml BID BAYRON Administration Sodium Chloride 10 ml 01/18/21 15:29 Sodium Chloride 0.9% 10 Ml Flush Syringe IV PRN PRN LINE FLUSH Tamsulosin HCl 0.4 mg 01/19/21 10:30 01/20/21 09:33 Tamsulosin 0.4 Mg Cap PO 0.4 mg QDAY BAYRON Administration
--- NOTE | 2021-01-20 14:11 | Cat Scan Report ---
CT ABDOMEN AND PELVIS WITHOUT CONTRAST HISTORY: Abdominal pain. COMPARISON: 01/03/2021 TECHNIQUE: CT images of the abdomen and pelvis were obtained without administration of intravenous co ntrast. All CT scans at this location are performed using CT dose reduction for ALARA by means of au tomated exposure control. FINDINGS: Lungs/bones: Increased interstitial prominence with interstitial nodularity and opacities in the low er lungs persist. Groundglass densities may be slightly improved however nodularity persists. Abdomen/pelvis: Within limits of a noncontrast exam the liver, spleen, right adrenal gland, pancreas and upper GI tract appear normal. Left adrenal nodule appears relatively unchanged likely represents adenoma thoracic calcifications are seen throughout. Prior cholecystectomy. Pancreas is identified t hickening of the cecum and ascending colon has improved since prior examination. No bowel obstruction is seen. Urinary bladder is distended. No free fluid is seen in the abdomen or pelvis. Degenerative changes seen throughout spine. Mild inflammation surrounding the kidneys however this may be chronic. No hydronephrosis. IMPRESSION: 1. Diffuse bilateral pulmonary opacities persist however may be slightly improved. Interstitial air i s a nodularity and densities in the lower lungs again noted. 2. Left adrenal lesion may represent adrenal adenoma. 3. No obstructing stone is seen. No hydronephrosis. Mild inflammation surrounding the kidneys. Correl ation with urinalysis. The bladder is distended. No obstructing stone. 4. Vascular calcifications are seen throughout the abdomen and pelvis. Signer Name: Bin Weinstein MD Signed: 01/20/2021 8:42 AM Workstation Name: [id number]
[2021-01-20 14:27] LABS: C-Reactive Protein 25.9 mg/dL (0.00-1.30)
[2021-01-20] MEDS: INSULIN NPH/REGULAR 70/30 INJ SUB-Q SCH (18:02)
[2021-01-21] MEDS: HYDROmorphone 1 MG/1 ML INJ IV PRN (01:34)
[2021-01-21] MEDS: ONDANSETRON 4 MG/2 ML INJ IV PRN ×2 (01:38→08:48)
[2021-01-21] MEDS: hydrALAZINE 25 MG TAB PO SCH ×2 (05:27→14:26)
[2021-01-21] MEDS: FUROSEMIDE 40 MG TAB PO SCH (05:27)
[2021-01-21] MEDS: INSULIN NPH/REGULAR 70/30 INJ SUB-Q SCH (08:50)
[2021-01-21] MEDS: INSULIN LISPRO 100 UNIT/ML SUB-Q SCH ×2 (08:55→13:05)
--- NOTE | 2021-01-21 09:29 | Electrocardiograph Report ---
[facility] Test Date: 2021-01-18 Test Time: 12:50:29 Pat Name: MERLY BO Department: Room: A353 1 Gender: M Bar Hostess: REDD : 1965 Requested By: DIPAK HANSEN Order Number: [id number] Reading MD: Ab Lagunas Measurements Intervals [place] Rate: 93 P: 3 CO: 133 QRS: -2 QRSD: 81 T: 27 QT: 380 QTc: 474 Interpretive Statements Pacemaker spikes or artifacts Sinus rhythm No previous ECG available for comparison Electronically Signed On 01-21-2021 9:29:06 EDT by Ab Lagunas
--- NOTE | 2021-01-21 09:34 | Progress Note ---
Assessment and Plan 1. ESRD: Patient was started on hemodialysis during the prior admission. Admitted after missed dialysis on 01/16. Avoid nephrotoxic agents. Meds dosage based on GFR. Hemodialysis: 01/18, 01/19. HD today. 2. FEN: Metabolic acidosis, s/p HD. Volume overload, UF with HD as tolerated, monitor. On Lasix. Limit fluid intake. Monitor lytes and volume status. 3. Recent Covid infection / PNA: On RA. Monitor. 4. DM type 2: Monitor bl. sugar. 5. Anemia: Monitor. Epogen with HD. 6. HTN: Adjust meds as appropriate. Monitor. Compliance encouraged. Outpatient hemodialysis chair at [facility], then transfer to [facility]. Patient was explained that he needs to arrange his own transportation for 1-3 treatments before the dialysis unit can help. He voiced understanding. Subjective: Patient was seen and examined at the bedside. Doing better. Objective: General appearance: well-developed, appears stated age, not in distress HEENT: ATNC, XIMENA Neck: trachea midline Respiratory: ctab Heart: regular, S1S2, no murmur Gastrointestinal: soft, normoactive bowel sounds, not tender Integumentary: no rash, warm and dry Ext: no edema Neurologic: AO, non-focal Ext: no edema, L BKA Hemodialysis access: R IJ tunnel catheter Subjective Date of service: 01/21/21 Objective - Vital Signs Vital signs: Vital Signs - 12hr 01/20/21 01/20/21 01/20/21 22:00 22:14 22:46 Temperature 98.9 F Pulse Rate 100 H 100 H Respiratory 20 Rate Respiratory 20 Rate [Neck] Blood Pressure 124/67 124/67 O2 Sat by Pulse 98 Oximetry 01/21/21 01/21/21 01/21/21 05:06 05:27 08:16 Temperature 99.0 F Pulse Rate 96 H 96 H Respiratory 18 Rate Respiratory Rate [Neck] Blood Pressure 118/52 118/52 O2 Sat by Pulse 97 95 Oximetry - Lab 01/19/21 05:20 01/19/21 05:20 Most recent lab results Calcium 7.6 mg/dL (8.4-10.2) L 01/19/21 05:20 Magnesium 1.90 mg/dL (1.7-2.3) 01/18/21 13:50 Medications & Allergies - Medications Allergies/Adverse Reactions: Allergies No Known Allergies Allergy (Verified 01/04/21 14:55) nka Home Medications: Home Medications Medication Instructions Recorded Confirmed Last Taken Type Docusate Sodium [Colace CAP] 100 mg PO BID PRN #1 capsule 05/11/15 01/19/21 01/18/21 Rx ALBUTEROL NEB's [Proventil 0.083% 2.5 mg IH Q4HRT PRN #1 nebu 01/15/21 01/19/21 01/18/21 Rx NEBS] ALPRAZolam [Xanax TAB] 0.25 mg PO Q8H PRN #16 tablet 01/15/21 01/19/21 01/18/21 Rx Cholecalciferol Vit D3 [Vitamin D3 1,000 unit PO QDAY #30 tablet 01/15/21 01/19/21 01/18/21 Rx 1,000 UNIT TAB] Epoetin Domenic-Epbx 20,000 [Retacrit] 20,000 unit SUB-Q LUCÍA PRN vial 01/15/21 01/19/21 01/18/21 Rx Famotidine [Pepcid] 10 mg PO BID #60 tablet 01/15/21 01/19/21 01/18/21 Rx Furosemide [Lasix TAB] 80 mg PO QDAY@0600 #30 tablet 01/15/21 01/19/21 01/18/21 Rx HYDROcodone/APAP 5-325 [[place] 1 each PO Q6H PRN #14 tablet 01/15/21 01/19/21 01/18/21 Rx 5-325 mg TAB] Insulin Aspart Prot/Aspart(Nf) 20 units SUB-Q BIDDIAB 30 Days #2 01/15/21 01/19/21 01/18/21 Rx [NovoLOG Mix 70/30 VIAL] vial Insulin NPH/Regular [NovoLIN 70/30] 40 unit SUB-Q BIDDIAB #3 vial 01/15/21 01/19/21 01/18/21 Rx Tamsulosin [Flomax] 0.4 mg PO QDAY #30 capsule 01/15/21 01/19/21 01/18/21 Rx amLODIPine 10 mg PO QDAY #30 tablet 01/15/21 01/19/21 01/18/21 Rx 10 hydrALAZINE [Apresoline TAB] 75 mg PO Q8HR #90 tablet 01/15/21 01/19/21 01/18/21 Rx Active Medications: Generic Name Dose Route Start Last Admin Trade Name Freq PRN Reason Stop Dose Admin Acetaminophen 650 mg 01/18/21 15:29 Acetaminophen 325 Mg Tab PO Q4H PRN Pain MILD(1-3)/Fever >100.5/HAYNES Albuterol 2.5 mg 01/18/21 15:29 Albuterol 2.5 Mg/3 Ml Nebu IH Q4HRT PRN Shortness Of Breath Alprazolam 0.25 mg 01/19/21 10:16 01/19/21 21:33 Alprazolam 0.25 Mg Tab PO 0.25 mg Q8H PRN Administration Anxiety Amlodipine Besylate 10 mg 01/19/21 10:30 01/20/21 09:36 Amlodipine 5 Mg Tab PO 10 mg QDAY BAYRON Administration Cholecalciferol 1,000 unit 01/20/21 10:00 01/20/21 09:33 Cholecalciferol (Vit D3) 1000 Unit (25 Mcg) Tab PO 1,000 unit QDAY BAYRON Administration Dexamethasone 6 mg 01/21/21 10:00 Dexamethasone 4 Mg/Ml Vial IV 01/30/21 10:01 DAILY BAYRON Docusate Sodium 100 mg 01/19/21 10:16 Docusate Sodium 100 Mg Cap PO BID PRN Constipation Famotidine 10 mg 01/19/21 22:00 01/20/21 22:46 Famotidine 10 Mg Tab PO 10 mg BID BAYRON Administration Furosemide 80 mg 01/19/21 10:30 01/21/21 05:27 Furosemide 40 Mg Tab PO 80 mg QDAY@0600 BAYRON Administration Heparin Sodium (Porcine) 3,000 unit 01/18/21 16:17 01/18/21 17:30 Heparin 10,000 Units/10 Ml Vial IV 3,000 unit LUCÍA PRN Administration hemodialysis Hydralazine HCl 75 mg 01/19/21 14:00 01/21/21 05:27 Hydralazine 25 Mg Tab PO 75 mg Q8HR BAYRON Administration Hydromorphone HCl 0.25 mg 01/18/21 15:31 01/21/21 01:34 Hydromorphone 1 Mg/1 Ml Inj IV 0.25 mg Q4H PRN Administration Pain, Moderate (4-6) Sodium Chloride 100 mls @ 999 mls/hr 01/18/21 16:17 Nacl 0.9% IV LUCÍA PRN Hypotension Insulin Human Isoph/Insulin Regular 30 unit 01/20/21 17:00 01/21/21 08:50 Insulin Nph/Regular 70/30 Inj SUB-Q 30 unit BIDDIAB BAYRON Administration Insulin Human Lispro 0 unit 01/19/21 11:30 01/21/21 08:55 Insulin Lispro 100 Unit/Ml SUB-Q 2 unit ACHS BAYRON Administration Protocol Ondansetron HCl 4 mg 01/18/21 15:29 01/21/21 08:48 Ondansetron 4 Mg/2 Ml Inj IV 4 mg Q8H PRN Administration Nausea And Vomiting Sodium Chloride 10 ml 01/18/21 22:00 01/20/21 22:47 Sodium Chloride 0.9% 10 Ml Flush Syringe IV 10 ml BID BAYRON Administration Sodium Chloride 10 ml 01/18/21 15:29 Sodium Chloride 0.9% 10 Ml Flush Syringe IV PRN PRN LINE FLUSH Tamsulosin HCl 0.4 mg 01/19/21 10:30 01/20/21 09:33 Tamsulosin 0.4 Mg Cap PO 0.4 mg QDAY BAYRON Administration
[2021-01-21] MEDS ORDERED: dexAMETHasone 4 MG/ML VIAL IV SCH (10:00)
[2021-01-21] MEDS ORDERED: POLYETHYLENE GLYCOL 3350 17 GM POWDER PO NR (10:08)
--- NOTE | 2021-01-21 10:14 | Discharge Summary ---
Providers - Providers Date of Admission: 01/18/21 15:29 Date of discharge: 01/21/21 Attending physician: RAQUEL PRUETT 01/18/21 13:43 Consult to Physician [CONS] Urgent Comment: Consulting Provider: NEWTON AAMDO Physician Instructions: Reason For Exam: esrd Primary care physician: [employer] Hospitalization Reason for admission: Worsening shortness of breath/fluid overload/noncompliance with HD Condition: Good Pertinent studies: CT abdomen and pelvis Chest x-ray; pulmonary vascular congestion Hospital course: 55-year-old -[place] male patient with significant history of diabetes mellitus hypertension obesity end-stage renal disease on hemodialysis MWF was re cently admitted with positive COVID-19 infection was discharged home recently, however patient got confused about his dialysis schedule and did not have dialysis Patient presented to the emergency room with fluid overload and shortness of breath, admitted appropriately managed evaluated by nephrology Patient received HD per schedule, patient repeat Covid testing on 01/18/2021 is positive Initially patient required 2 L of nasal cannula oxygen upon admission however as patient gradually got better patient is saturating well on room air Patient had some vague abdominal pain during the hospital stay, symptomatically managed, CT abdomen and pelvis no acute abnormalities noted Symptoms significantly improved today patient is comfortable no new complaints vital signs stable Physical examination prior to discharge did not show any new changes Cleared by nephrology for discharge and follow-up per schedule Case management and I have reiterated to the patient the correct scheduling in the correct center of hemodialysis upon discharge Patient verbalized understanding Stable at discharge Final diagnosis: --COVID-19 positive [01/03/2021 and 01/18/2021] Current Visit: No Status: Resolved Initially patient required 2 L of nasal cannula oxygen However later patient is saturating well on room air No indication dexamethasone No indication for remdesivir due to ESRD Continue Isolation precautions Advised to continue self quarantine and other COVID-19 precautions Upon discharge per protocols --Abdominal pain; Current Visit: Yes Status: Acute Resolved, CT abdomen and pelvis ; no acute abnormality noted -- ESRD (end stage renal disease) on dialysis Current Visit: Yes Status: Acute Plan to address problem: Nephrology team consulted in ED, dialysis as per renal team, strict I's/O, monitor urine output every shift, avoid nephrotoxic agents. Outpatient confirmed HD schedule was given to the patient by CM -- Metabolic acidosis Current Visit: Yes Status: Acute BMP, repeat BMP in a.m., supportive care, urgent dialysis. -- Obesity BMI 34.2 Current Visit: Yes Status: Acute Dietary modification exercise as tolerated and weight reduction When medically stable --Type 2 diabetes mellitus; A1c 7.1[01/06/2020] Current Visit: No Status: Resolved Accu-Chek, sliding scale coverage, ADA diet and long-acting insulin as needed --Obesity; BMI 34.3 Current Visit: No Status: Resolved Need outpatient weight reduction program Patient's outpatient hemodialysis is set up and was explained in detail to the patient Stable at discharge Disposition: DC-01 TO HOME OR SELFCARE Final Discharge Diagnosis (Prints w/discharge instructions): COVID-19 infection. End-stage renal disease on hemodialysis. Metabolic acidosis. Abdominal pain. Obesity 34.2 BMI. Type 2 diabetes mellitus Time spent for discharge: 35 min Core Measure Documentation - Palliative Care Palliative Care/ Comfort Measures: Not Applicable - Core Measures Any of the following diagnoses?: none Exam - Constitutional Vitals: Temp Pulse Resp BP Pulse Ox 99.0 F 96 H 18 118/52 95 01/21/21 05:06 01/21/21 05:27 01/21/21 05:06 01/21/21 05:27 01/21/21 08:16 General appearance: Present: no acute distress, well-nourished - EENT Eyes: Present: PERRL, EOM intact - Neck Neck: Present: supple, normal ROM - Respiratory Respiratory effort: normal Respiratory: bilateral: diminished, negative: rales, rhonchi, wheezing - Cardiovascular Rhythm: regular Heart Sounds: Present: S1 & S2 - Extremities Extremities: no ischemia, No edema, abnormal (Below-knee amputation) - Abdominal General gastrointestinal: Present: soft, non-tender, non-distended - Integumentary Integumentary: Present: clear, warm - Musculoskeletal Musculoskeletal: strength equal bilaterally, generalized weakness - Psychiatric Psychiatric: appropriate mood/affect - Neurologic Neurologic: moves all extremities Plan Activity: advance as tolerated, fall precautions Diet: diabetic, renal Additional Instructions: Patient was given instructions prior to discharge: [facility] [address] at 3PM and then. transfer to [facility] with a schedule of -- 3 pm when Covid negative. Strongly advised to comply with medications, diet, hemodialysis, follow-up visits. If you have worsening symptoms contact MD or go to emergency room. Follow-up COVID-19 isolation precautions, social distancing, self quarantine mask. And other Covid protocols as instructed by discharge nurse. You were resting room air and ambulatory room air O2 sats are more than 95%. You do not need home oxygen Follow up with: PRIMARY CARE, [Primary Care Provider] - 3-5 Days NEWTON AMADO MD [Staff Physician] - 7 Days
[2021-01-21] MEDS: amLODIPine 5 MG TAB PO SCH (14:21)
[2021-01-21] MEDS: TAMSULOSIN 0.4 MG CAP PO SCH (14:21)
[2021-01-21] MEDS: FAMOTIDINE 10 MG TAB PO SCH (14:23)
[2021-01-21] MEDS: CHOLECALCIFEROL (VIT D3) 1000 UNIT (25 mcg) TAB PO SCH (14:24)
[2021-01-21 14:27] VITALS: BP 156/70
[2021-01-21] MEDS ORDERED: ALUM-MAG HYDROXIDE-SIMETHICONE 200-200-20MG/5ML ORAL LIQD 30 ML PO PRN (16:30)
== END 2021-01-21 18:49 | disposition home health service (06) | DRG 871 ==
LOC: ED 12:26 → 3A 15:29
PROVIDERS: ADMIT Internal Medicine; ATTEND Internal Medicine
PROC: 5A1D70Z Performance of Urinary Filtration, Intermittent, Less than 6 Hours Per Day (ICD-10-PCS; principal; 2021-01-18)
PROC: 5A1D70Z Performance of Urinary Filtration, Intermittent, Less than 6 Hours Per Day (ICD-10-PCS; 2021-01-19)
PROC: 5A1D70Z Performance of Urinary Filtration, Intermittent, Less than 6 Hours Per Day (ICD-10-PCS; 2021-01-21)
DX: A41.89 Other specified sepsis (principal); U07.1 COVID-19; N18.6 End stage renal disease; E66.2 Morbid (severe) obesity with alveolar hypoventilation; Z68.34 Body mass index [BMI] 34.0-34.9, adult; Z99.2 Dependence on renal dialysis; E11.22 Type 2 diabetes mellitus with diabetic chronic kidney disease; I12.0 Hypertensive chronic kidney disease with stage 5 chronic kidney disease or end stage renal disease; Z79.4 Long term (current) use of insulin; Z79.899 Other long term (current) drug therapy; E87.70 Fluid overload, unspecified; D64.9 Anemia, unspecified; Z91.15 Patient's noncompliance with renal dialysis
CPT/HCPCS: 36415; 71045; 74176; 80053; 80061; 80202; 82140; 82550; 82728; 82962; 83615; 83735; 83880; 84484; 85025; 85379; 85610; 86140; 87040; 93005; 96374; G0378; J0885; J1170; J1644; J1815; J2405; J3370; J7040; U0003

== ENCOUNTER 2021-10-13 06:36 | Day surgery (SDC) | payer MEDICARE ==
[~2021-10-13 06:36] MED LIST: HEPARIN 10,000 UNITS/10 ML VIAL IV ONE; SODIUM CHLORIDE 0.9% IRR 1,500 ML BOTTLE IR ONE; SODIUM CHLORIDE 0.9% IRR 500 ML BOTTLE IR ONE; ceFAZolin/STERILE WATER 2 GM/20 ML SYRINGE IV NR
[2021-10-13] MEDS ORDERED: SODIUM CHLORIDE 0.9% 1000 ML 1,000 ML ONE (06:47)
[2021-10-13] MEDS ORDERED: LIDOCAINE (1%) 10 MG/1 ML VIAL 20 ML MDV ONE (07:22)
[2021-10-13] MEDS ORDERED: BUPIVACAINE/PF (0.5%) 5 MG/1 ML 30 ML VIAL INFILTRATI ONE ×2 (07:23→12:23)
[2021-10-13] MEDS ORDERED: HEPARIN 10,000 UNITS/10 ML VIAL ONE (07:23)
[2021-10-13] MEDS ORDERED: SODIUM CHLORIDE 0.9% 500 ML 500 ML ONE (07:23)
[2021-10-13 07:29] LABS: Hematocrit 39.3 % (35.5-45.6); Hemoglobin 13.1 gm/dl (11.8-15.2); Mean Corpuscular HGB Conc 34 % (32-34); Mean Corpuscular Volume 96 fl (84-94); Platelet Count 308 K/mm3 (140-440); Red Blood Count 4.08 M/mm3 (3.65-5.03); Red Cell Distribution Width 12.4 % (13.2-15.2)
[2021-10-13] MEDS ORDERED: amLODIPine 5 MG TAB PO NR (07:36)
[2021-10-13] MEDS ORDERED: HYDROmorphone 1 MG/1 ML INJ IV PRN ×2 (07:40)
[2021-10-13] MEDS ORDERED: ONDANSETRON 4 MG/2 ML INJ IV PRN (07:40)
--- NOTE | 2021-10-13 07:41 | Anesthesia Day of Surgery ---
Anesthesia Day of Surgery - Day of Surgery Patient Examined: Yes Patient H&P Reviewed: Yes Patient is NPO: Yes
--- NOTE | 2021-10-13 07:43 | Anesthesia Consultation ---
Anesthesia Consult and Med Hx Date of service: 10/13/21 - Airway Anesthetic Teeth Evaluation: Chipped ROM Head & Neck: Adequate Mental/Hyoid Distance: Adequate Mallampati Class: Class II Intubation Access Assessment: Good - Pre-Operative Health Status ASA Pre-Surgery Classification: ASA3 Proposed Anesthetic Plan: General - Pulmonary Hx Smoking: No Hx Asthma: No COPD: No Hx Pneumonia: Yes - Cardiovascular System Hx Hypertension: Yes Hx Angina: No Hx Pacemaker: No Hx Peripheral Vascular Disease: Yes - Central Nervous System Hx Seizures: No CVA: No Hx Psychiatric Problems: No - Gastrointestinal Hx Ulcer: No Hx Gastroesophageal Reflux Disease: No - Endocrine Hx Renal Disease: Yes Hx End Stage Renal Disease: Yes (Last HD yesterday) Hx Cirrhosis: No Hx Liver Disease: No Hx Insulin Dependent Diabetes: Yes Hx Hypothyroidism: No Hx Hyperthyroidism: No - Hematic Hx Anemia: Yes (PATIENT WITH ANAEMIA) Hx Sickle Cell Disease: No - Other Systems Hx Cancer: No (PT DENIES)
[2021-10-13 07:55] LABS: Calcium 10.1 mg/dL (8.4-10.2)
[2021-10-13] MEDS ORDERED: SODIUM CHLORIDE 0.9% 1000 ML 1,000 ML IV SCH (08:00)
[2021-10-13] MEDS ORDERED: MIDAZOLAM 2 MG/2 ML INJ IV NR (08:00)
--- NOTE | 2021-10-13 08:30 | Short Stay Summary ---
Short Stay Documentation Date of service: 10/13/21 Narrative H&P: The patient is a 56-year-old male with a history of end-stage renal disease who is currently on hemodialysis through a right internal jugular permacath. He presented to the office in need of permanent hemodialysis access. The patient is right-hand dominant and requires access in his left upper extremity. I performed a bedside ultrasound that demonstrated he had a cephalic vein in his left upper extremity and is an adequate candidate for creation of a left brachiocephalic arteriovenous fistula. He was given the risk, benefits, and alternative procedure and consented to the procedure. - History Past Medical History: COPD, diabetes, ESRD, heart failure, hypertension, hyperlipidemia Past Surgical History: cholecystectomy, Other (Left below-knee amputation, permacath insertion) - Allergies and Medications Current Medications: Allergies No Known Allergies Allergy (Verified 01/04/21 14:55) nka Home Medications Medication Instructions Recorded Confirmed Last Taken Type Cholecalciferol Vit D3 [Vitamin D3 1,000 unit PO QDAY #30 tablet 01/15/21 10/13/21 10/12/21 17:00 Rx 1,000 UNIT TAB] Furosemide [Lasix TAB] 80 mg PO QDAY@0600 #30 tablet 01/15/21 10/13/21 10/12/21 17:00 Rx amLODIPine 10 mg PO QDAY #30 tablet 01/15/21 10/13/21 10/13/21 08:00 Rx hydrALAZINE [Apresoline TAB] 75 mg PO Q8HR #90 tablet 01/15/21 10/13/21 10/13/21 04:00 Rx Lispro Insulin [HumaLOG] 0 unit SQ BID PRN 10/11/21 10/11/21 Unknown History Aspirin 81 mg PO DAILY 10/13/21 10/13/21 10/12/21 09:00 History Active Medications Amlodipine Besylate (Amlodipine 5 Mg Tab) 10 mg PO ONCE NR Stop: 10/13/21 10:00 Last Admin: 10/13/21 08:10 Dose: 10 mg Cefazolin Sodium (Cefazolin/Sterile Water 2 Gm/20 Ml Syringe) 2 gm IV PREOP NR Stop: 10/13/21 20:00 Hydromorphone HCl (Hydromorphone 1 Mg/1 Ml Inj) 0.25 mg IV Q10MIN PRN PRN Reason: Pain, Moderate (4-6) Stop: 10/13/21 20:00 Hydromorphone HCl (Hydromorphone 1 Mg/1 Ml Inj) 0.5 mg IV Q10MIN PRN PRN Reason: Pain , Severe (7-10) Stop: 10/13/21 20:00 Sodium Chloride (Nacl 0.9% 1000 Ml) 1,000 mls @ 42 mls/hr IV DIRECT BAYRON Last Admin: 10/13/21 08:11 Dose: 42 mls/hr Midazolam HCl (Midazolam 2 Mg/2 Ml Inj) 2 mg IV PREOP NR Stop: 10/13/21 23:59 Ondansetron HCl (Ondansetron 4 Mg/2 Ml Inj) 4 mg IV ONCE PRN PRN Reason: Nausea And Vomiting Stop: 10/13/21 20:00 - Physical exam General appearance: no acute distress Lungs: Normal air movement Heart: Regular rate Gastrointestinal: normal Male Genitourinary: deferred Rectal Exam: deferred Extremities: no ischemia - Brief post op/procedure progress note Date of procedure: 10/13/21 Pre-op diagnosis: End-Stage Renal Disease Post-op diagnosis: same Procedure: Creation of Left Brachial Artery to Left Axillary Vein Arteriovenous Graft with 7 mm Bovine Artegraft Anesthesia: GETA Surgeon: SCOTT GRANT Estimated blood loss: minimal Pathology: none Condition: stable - Disposition Condition at discharge: Good Disposition: 01 HOME / SELF CARE / HOMELESS Short Stay Discharge Plan Activity: other (No heavy lifting with left arm for 2 weeks.) Wound: open to air, keep clean and dry, other (Okay to wash the left oral wounds with soap and water but do not soak in water for 2 weeks.) Follow up with: SCOTT GRANT MD [Staff Physician] - 14 Days Prescriptions: HYDROcodone/APAP 7.5-325 [[place] 7.5/325] 1 each PO Q6HR PRN #40 tablet PRN Reason: Pain
[2021-10-13] MEDS ORDERED: LIDOCAINE MPF (2%) 20 MG/1 ML VIAL 5 ML ONE (09:32)
[2021-10-13] MEDS ORDERED: propofoL 200 MG/20 ML VIAL IV ONE (09:32)
[2021-10-13] MEDS ORDERED: HYDROmorphone 1 MG/1 ML INJ ONE (09:32)
[2021-10-13] MEDS ORDERED: SODIUM CHLORIDE 0.9% IRR 1,500 ML BOTTLE IR ONE (11:03)
[2021-10-13] MEDS ORDERED: SODIUM CHLORIDE 0.9% IRR 500 ML BOTTLE IR ONE (11:03)
[2021-10-13] MEDS ORDERED: HEPARIN 10,000 UNITS/10 ML VIAL IV ONE (11:03)
[2021-10-13] MEDS ORDERED: SODIUM CHLORIDE P/F VIAL 10 ML 10 ML ONE (11:27)
[2021-10-13] MEDS ORDERED: SODIUM CHLORIDE 0.9% 250ML 250 ML ONE (11:27)
[2021-10-13] MEDS ORDERED: rifAMPin 600 MG VIAL ONE (11:27)
[2021-10-13] MEDS ORDERED: SODIUM CHLORIDE 0.9% P/F 10 ML VIAL IV ONE (11:30)
[2021-10-13] MEDS ORDERED: SODIUM CHLORIDE 0.9% 250 ML IVPB IV ONE (11:38)
[2021-10-13] MEDS ORDERED: rifAMPin 600 MG VIAL IV ONE (11:38)
--- NOTE | 2021-10-13 12:56 | Operative Report ---
Operative Report Operative Report: Date of procedure: 10/13/2021 Pre-operative diagnosis: End-Stage Renal Disease Post-operative diagnosis: Same Procedure(s): 1. Creation of Left Brachial Artery to Axillary Vein AV Graft with 7 mm Bovine Graft Artergraft Surgeon: Eduardo Dobbs MD [employer] Car Attendant: None Anesthesia: General Endotracheal Anesthesia EBL: Minimal Counts: Correct Complications: None Condition: Stable Findings: The left cephalic vein was sclerotic and occluded at the antecubital crease and in the distal bicep. The left arm AV graft had a palpable thrill and there was a palpable radial pulse at the completion of the case. Specimen: None Indication: The patient is a 56-year-old male with a history of end-stage renal disease who is currently on hemodialysis to right internal jugular permacath. He is in need of long-term dialysis access and had an ultrasound that demonstrated his left cephalic vein is adequate for creation of a left brachiocephalic arteriovenous fistula. He was given the risk, benefits, and alternative procedures and consented to the procedure. Description of Procedure: The patient was brought to the operating room and laid in supine position. After general endotracheal anesthesia was achieved the patient's left arm was prepped and draped in normal sterile fashion. A transverse incision was created just below the antecubital crease and carried down to the cephalic vein using sharp dissection. The brachial artery was then dissected through the same incision and dissected circumferentially and controlled with Vesseloops. I then dissected the cephalic vein, circumferentially, ligating side branches with 3-0 silk ties and transecting them. I ligated the distal cephalic vein with a 3-0 silk tie and transected the proximal vein. Upon transecting the vein there was no backbleeding. I advanced a syringe with heparinized saline, on an olive tip, into the vein and flushed this into the vein and all of the heparinized saline appeared to flow retrograde. I attempted to pass the tip further into the vein and the became obvious that the vein was sclerotic and occluded. I used ultrasound to evaluate the vein and it appeared that despite the vein being patent on exam in in the office, 3 months prior, the vein was now occluded. At this point I made the decision to place an arteriovenous graft. I ligated the proximal cephalic vein using a 3-0 silk tie. A second incision was then created, in longitudinal fashion, on the medial aspect of the arm just distal to the axillary crease and carried down to the axillary vein using sharp dissection. Axillary vein was dissected out circumferentially and controlled with a vessel loop. I then used a Elizabeth-Wick tunneler to tunnel from the brachial artery incision to the axillary vein incision and then pulled an 7 mm bovine through the tunnel. I infused with heparinized saline to ensure that it was not twisted or kinked. I put the brachial artery vessel loops on tension controlling the flow and then created an arteriotomy using an 11 blade and Mike scissors. I beveled the graft and created an end-to-side anastomosis using 6-0 Prolene running fashion. I clamped the graft just proximal to the anastomosis and then released the vessel loops restoring flow in the brachial artery. I placed quick clot in incision to achieve hemostasis. I cut the proximal end of the graft to the appropriate length and beveled the graft in preparation for a venous anastomosis. I controlled the axillary vein a Satinsky clamp and created a venotomy using an 11 blade and Mike scissors. I created an end to side anastomosis using a 6-0 Prolene in running fashion. Prior to completing the anastomosis I flushed the graft to ensure there was no thrombus and then completed the anastamosis. I released all clamps allowing flow into the AV graft which had an excellent thrill. I packed the wound with quick clot to achieve hemostasis. I closed both wounds in 2 layers using 3-0 Vicryl in running fashion in the deep dermal layer and 4-0 Monocryl in running fashion the subcuticular layer. I dressed both wounds with Dermabond. The patient tolerated the procedure well all sponge, needle, and instrument counts were correct. The patient was taken to the recovery in stable condition.
[2021-10-13 14:09] VITALS: BP 165/70
--- NOTE | 2021-10-13 16:52 | Post Anesthesia Evaluation ---
- Post Anesthesia Evaluation Patient Participated: Yes Airway Patent: Yes Stable Respiratory Function: Yes Nausea/Vomiting: No Temp > 96.8F: Yes Pain Manageable: Yes Adequeate Hydration: Yes Anesthesia Complications: No Block Receding Appropriately: Not Applicable Patient on Ventilator: No
== END 2021-10-13 14:40 | disposition home or self-care (01) ==
LOC: OR 06:36
PROVIDERS: ATTEND Surgery Vascular Surgery
DX: I12.0 Hypertensive chronic kidney disease with stage 5 chronic kidney disease or end stage renal disease (principal); N18.6 End stage renal disease; E11.22 Type 2 diabetes mellitus with diabetic chronic kidney disease; E11.52 Type 2 diabetes mellitus with diabetic peripheral angiopathy with gangrene; E11.621 Type 2 diabetes mellitus with foot ulcer; E78.00 Pure hypercholesterolemia, unspecified; Z99.2 Dependence on renal dialysis; Z79.82 Long term (current) use of aspirin; Z79.84 Long term (current) use of oral hypoglycemic drugs; Z79.899 Other long term (current) drug therapy; Z98.890 Other specified postprocedural states
CPT/HCPCS: 36415; 36830; 80048; 82962; 85027; C1768; J0690; J1170; J1644; J2250; J2704; J3490; J7030; J7050; U0003; J7120; Q0162; J7040